=== PATIENT | female | born 1980 | race Caucasian/White ===

== ENCOUNTER 2018-03-13 08:48 | Observation (INO) ==
[~2018-03-13 08:48] MED LIST: CLINDAMYCIN PHOSPHATE 900 MG in DEXTROSE 5 % IN WATER 100 ML IV PRN; GENTAMICIN SULFATE 100 MG in DEXTROSE 5 % IN WATER 100 ML IV PRN
--- NOTE | 2018-03-13 09:23 | ANES ---
Anesthesia Pre Procedure Eval Vitals/Labs: Last Vital Signs Temp 36.2 C 03/13/18 09:11 Pulse 66 03/13/18 09:11 Resp 18 03/13/18 09:11 BP 124/66 03/13/18 09:11 Pulse Ox 100 03/13/18 09:11 HOME MEDICATIONS alprazolam 0.5 mg tablet See Label Instructions PO DAILY PRN #30 tab 01/09/18 [ Last Taken Unknown] itraconazole 100 mg capsule 100 mg PO DAILY 01/09/18 [Last Taken Unknown] lamotrigine 150 mg tablet 150 mg PO DAILY #30 tab 01/09/18 [Last Taken Unknown] risperidone 0.5 mg tablet 0.5 mg PO DAILY #30 tab 01/09/18 [Last Taken Unknown] dextroamphetamine-amphetamine 20 mg tablet 20 mg PO TID #90 tab 02/18/18 [Last Taken Unknown] hydrocodone 2.5 mg-acetaminophen 325 mg tablet 1 tab PO Q6H PRN #14 tab [Last Taken Unknown] hydrocodone 5 mg-acetaminophen 300 mg tablet 1 tab PO Q6H #14 tab 02/26/18 [ Last Taken Unknown] Allergies/Adverse Reactions: Allergies Allergy/AdvReac Type Severity Reaction Status Date / Time cephalexin monohydrate Allergy rash- as a Verified 02/25/18 14:35 [From Keflex] child amoxicillin [Amoxicillin] AdvReac stomach Verified 02/25/18 14:35 upset iron AdvReac severe Verified 02/25/18 14:33 diarrhea sertraline HCl [From Zoloft] AdvReac restlessnes Verified 02/25/18 14:35 s - Planned Procedure Planned Procedure: TLH,bilt salpingectomy, cystoscopy Medication List Reviewed:: Yes Allergies Verified: Yes Medical History (Last Reviewed 03/13/18 @ 09:22 by Rajan Cárdenas CRNA) Bipolar affective disorder, current episode depressed (Chronic) Attention deficit disorder of adult with hyperactivity (Chronic) ADHD Acne Bipolar affective disorder, currently depressed, mild Cervical dysplasia Onset Date: ~2002 Decreased libido Onset Date: ~04/07/14 Depression Dysmenorrhea Onset Date: ~04/07/14 Generalized anxiety disorder Onset Date: Unknown Hair loss Onset Date: ~01/24/15 Hemorrhoids Onset Date: Unknown Insomnia Irritable bowel syndrome Onset Date: Unknown Kidney stone Onset Date: ~12/2003 Meningitis Onset Date: Unknown Mobility impaired Onset Date: Unknown PMS (premenstrual syndrome) Onset Date: ~04/07/14 Anemia Onset Date: Unknown Surgical History (Last Reviewed 03/13/18 @ 09:22 by Rajan Cárdenas CRNA) H/O LEEP Onset Date: ~2002 H/O dilation and curettage Onset Date: ~2002 H/O laparoscopy Onset Date: ~05/2007 History of cholecystectomy History of hysteroscopy Onset Date: ~2002 History of nephrolithotomy with removal of calculi Onset Date: ~2003 History of wisdom tooth extraction Onset Date: ~08/2000 Family History (Last Reviewed 03/13/18 @ 09:22 by Rajan Cárdenas CRNA) Brother Bipolar disorder ADHD Mother ADHD Hypertension Grandfather Diabetes Hypertension Grandmother Hypertension - Family Anesthesia History Family History:: no untoward family reactions to anesthesia - Airway/Neck/Teeth Within Normal Limits:: Yes Teeth Condition: Intact Denture Type: None Neck Exam: full range of motion, normal inspection Mallampatti Score: 1 Thyromental (T-M) distance: > 6 cm Mandibulo Hyoid distance: > 3 cm - Respiratory Respiratory: chest non-tender, lungs clear, normal breath sounds, no respiratory distress Smoking Status: Former smoker Sleep Apnea currently treated: No Sleep Apnea by current assessment: No Discussed Risks/Treatment of MOUNIKA: No - Cardiovascular Patient History - Cardiac/Respiratory: No pertinent hx Tolerates Activity: Good Heart Sounds: S1 & S2, Regular - Anesthesia Assessment and Plan ASA Class: PS, II Anesthesia Type Plan: General ET Planned difficult intubation/equipment available: No
[2018-03-13] MEDS: RINGER'S SOLUTION,LACTATED 1,000 ML IV PRN ×3 (09:30→11:52)
[2018-03-13] MEDS ORDERED: BUPIVACAINE HCL/EPINEPHRINE 50 ML VIAL IJ ONE (11:00)
[2018-03-13] MEDS ORDERED: MORPHINE SULFATE 2 MG/ML DISP.SYRIN IV PRN ×2 (12:00→15:10)
[2018-03-13] MEDS ORDERED: RINGER'S SOLUTION,LACTATED 1,000 ML IV PRN ×2 (12:00→15:10)
[2018-03-13] MEDS ORDERED: IBUPROFEN 800 MG TABLET PO PRN (12:00)
[2018-03-13] MEDS ORDERED: HYDROcodone/ACETAMINOPHEN 1 EACH TABLET PO PRN (12:00)
--- NOTE | 2018-03-13 13:01 | ANES ---
Post Anesthesia Discharge - Transfer of Care Transfer of Care handoff given to nurse: Yes - Discharge from PACU Discharge from PACU when meets criteria: Yes
--- NOTE | 2018-03-13 13:02 | ANES ---
Post Anesthesia Assessment - Vital Signs Vitals: Last Vital Signs Temp 36.5 C 03/13/18 12:10 Pulse 63 03/13/18 12:55 Resp 12 03/13/18 12:55 BP 103/72 03/13/18 12:55 Pulse Ox 100 03/13/18 12:55 Airway Patency: Normal - Mental Status Level Of Consciousness: Awake - Pain Level Pain Score: 6 - N/V Assessment Nausea/Vomiting Presence: None Dehydration:: No
--- NOTE | 2018-03-13 13:31 | POSTOP NO ---
Date of Surgery: 03/13/18 Start Time: 13:29 Anesthesia: General Patient Tolerated the Procedure: Well Post Operative Diagnosis/Procedures: Pre Operative Diagnosis: AUB, dysmenorrhea Post Operative Diagnosis: Same Procedure Performed: TLH, salpingectomies, cystoscopy Haynes: Dr. Masterson Estimated Blood Loss: 50 mL Specimens: cervix, uterus, tubes Surgical Complications: none Findings: normal liver, appendix Condition: stable Disposition: to recovery room
[2018-03-13] MEDS ORDERED: ONDANSETRON HCL/PF 2 MG/ML VIAL IV PRN (15:10)
--- NOTE | 2018-03-13 16:32 | OR ---
Operative Report - Dictated Report Narrative: Preoperative diagnosis: AUB, dysmenorrhea Postoperative diagnosis: same Procedure: total laparoscopic hysterectomy, salpingectomies, cystoscopy Surgeon: Dr. Love Haynes: Dr. Masterson Anesthesia: general Anesthesiologist: Krunal Cárdenas CRNA Uterus: appeared adenomyotic Right ovary: normal Left ovary: normal Liver edge and diaphragm: normal Appendix: normal Description of the procedure: The patient was taken to the operating room where general endotracheal anesthesia was induced without difficulty. She was then prepped and draped in the lithotomy position in the standard surgical fashion. Attention was then turned to the vagina. An open-sided speculum was placed in the patient's vagina. The anterior lip of the cervix was grasped with a single- toothed tenaculum. The cervical os was dilated to accommodate the MUNIRA manipulator. A blue tip and a medium cup was used. Attention was then turned to the abdomen. A 5mm incision was made at the punctum of the umbilicus. A 5mm trocar was placed under direct visualization. The abdomen was insufflated with CO2 gas. Two additional ports were placed in the RLQ and LLQ respectively. The left round ligament was identified and transected. The left tube was cut along the mesosalpinx. Next, the utero- ovarian ligament was cut. The incision was carried through the anterior and posterior leaves of the broad ligament. The uterine arteries were taken on the left. Hemostasis was adequate. The same procedure was repeated on the right. A posterior colpotomy was undertaken and then carried circumferentially. The vaginal cuff was closed with 0-PDS with interrupted sutures. Hemostasis was adequate at the end of the procedure. EBL: 50 mL Complications: none
[2018-03-13] MEDS: HYDROcodone/ACETAMINOPHEN 1 EACH TABLET PO PRN ×3 (17:17→23:22)
[2018-03-14] MEDS: HYDROcodone/ACETAMINOPHEN 1 EACH TABLET PO PRN ×4 (02:34→13:30)
--- NOTE | 2018-03-14 10:42 | DS ---
Procedures Performed: see notes below List Procedures: TLH, salpingectomies, cystoscopy Results and Findings: Lab Pending Results 03/13/18 09:00: Urine HCG, Qual Negative 03/13/18 09:16: Creatinine 0.90 03/13/18 12:20: Pathology Specimen Sent to path Discharge Location: Home Disposition: Home self-care Condition: Good Discharge Activity: Activity as tolerated Discharge Diet: General/regular food Referrals: Romulo Thurman DO [Primary Care Provider] - Problem Oriented Discharge Instructions to Patient/Family: Total Laparoscopic Hysterectomy, Care After Additional Patient Instructions (free text): Please call [facility] at [phone] if you have any questions or concerns. Please follow up with Dr. Love on 04/09/18 at 3:30 PM Complete Home Medications List: Complete Home Medication List: itraconazole 100 mg capsule 100 mg PO DAILY 01/09/18 lamotrigine 150 mg tablet 150 mg PO DAILY #30 tab 01/09/18 risperidone 0.5 mg tablet 0.5 mg PO DAILY #30 tab 01/09/18 dextroamphetamine-amphetamine 20 mg tablet 20 mg PO TID #90 tab 02/18/18 hydrocodone 2.5 mg-acetaminophen 325 mg tablet 1 tab PO Q6H PRN #14 tab hydrocodone 5 mg-acetaminophen 300 mg tablet 1 tab PO Q6H #14 tab 02/26/18 ALPRAZolam [Xanax] 0.5 - 1 mg PO DAILY PRN 03/13/18
--- NOTE | 2018-03-14 10:46 | PN ---
Subjective - Date and Time Seen Date: 03/14/18 Time: 10:43 Subjective Narrative: Pt woke up in pain because she was sleeping for hours Objective Objective Narrative: see vital signs - Review of Systems Generalized/Overall Review: Reports: No Symptoms Reported Misc: All systems neg except as marked - Vitals Vitals: Last Vital Signs Temp 36.5 C 03/14/18 07:46 Pulse 55 L 03/14/18 07:46 Resp 18 03/14/18 07:46 BP 118/62 03/14/18 07:46 Pulse Ox 98 03/14/18 07:46 - Exam Constitutional: Present: Alert, Oriented x3, Cooperative, No distress Abdomen: Present: soft, nontender, nondistended Extremity: Present: non-tender, no pedal edema, no calf tenderness Skin Exam: Present: normal color, warm/dry, no cyanosis Appearance: Present: appropriate appearance Eye contact: Present: cooperative Thoughts: Present: normal thought pattern Assessment/Plan Plan Narrative: Doing well Discharge today
[2018-03-14 13:47] VITALS: BP 115/60
== END 2018-03-14 13:46 | disposition home or self-care (01) ==
LOC: SUR 08:48 → MS 08:48
PROVIDERS: ADMIT Obstetrics & Gynecology; ATTEND Obstetrics & Gynecology
CPT/HCPCS: 36415; 82565; 84703; 88307; 96361; 96374; G0378